=== PATIENT | male | born 1995 | race Caucasian/White ===

== ENCOUNTER 2019-05-27 20:19 | Emergency (ER) | payer SELFPAY ==
--- NOTE | 2019-05-27 20:24 | PDOC ---
Rapid Medical Evaluation Chief Complaint: Pain Time Seen by Provider: 05/27/19 20:22 Medical Evaluation: 05/27/19 20:24 I have performed a brief in-person evaluation of this patient. The patient presents with a chief complaint of:RLE injury yesterday Pertinent physical exam findings:stable w/ ELIANA in place to R ankle/foot and using crutches I have ordered the following:XR The patient will proceed to the ED for further evaluation. Discharge Disposition - Diagnosis Ankle injury Qualifiers: Encounter type: initial encounter Laterality: right Qualified Code(s): S99.911A - Unspecified injury of right ankle, initial encounter - Referrals - Patient Instructions - Post Discharge Activity
[2019-05-27 20:33] VITALS: BP 124/66; PULSE 90; TEMP 97.9; BMI 25.8
--- NOTE | 2019-05-27 21:49 | PDOC ---
History of Present Illness - General Chief Complaint: Pain Stated Complaint: RT LEG PAIN Time Seen by Provider: 05/27/19 20:22 History Source: Patient Exam Limitations: No Limitations - History of Present Illness Initial Comments: 05/27/19 21:57 HISTORY OF PRESENT ILLNESS: This a 24-year-old male denies medical history presents emergency department for evaluation of right ankle pain status post inversion injury while playing basketball. Patient reports she jumped up to get the ball when he came down landed on another player's foot causing his right foot to invert. The injury happened while [facility] [employer]. Patient had access to crutches and Alphonse wrap at that time. The incident happened approximately 24 hours ago and patient reports continued pain as his recent for evaluation. Patient currently rates his pain 5/10 and describes as a throbbing sensation. No recent travel or sick contacts. PAST MEDICAL HISTORY: Denies past medical history SURGICAL HISTORY: Denies ALLERGIES: No known drug allergies REVIEW OF SYSTEMS General/Constitutional: Denies fever or chills. Denies weakness, weight change. HEENT: Denies change in vision. Denies ear pain or discharge. Denies sore throat. Cardiovascular: Denies chest pain or shortness of breath. Respiratory: Denies cough, wheezing, or hemoptysis. Gastrointestinal: Denies nausea, vomiting, diarrhea or constipation. Denies rectal bleeding. Genitourinary: Denies dysuria, frequency, or change in urination. Musculoskeletal: see HPI Skin and breasts: Denies rash or easy bruising. Neurologic: Denies headache, vertigo, loss of consciousness, or loss of sensation. Psychiatric: Denies depression or anxiety. Endocrine: Denies increased thirst. Denies abnormal weight change. Hematologic/Lymphatic: Denies anemia, easy bleeding, or history of blood clots. Allergic/Immunologic: Denies hives or skin allergy. Denies latex allergy. PHYSICAL EXAM General Appearance: Well-appearing, appropriately dressed. No apparent distress , no intoxication. Respiratory/Chest: Lungs CTAB. No shortness of breath, chest tenderness, respiratory distress, accessory muscle use. No crackles, rales, rhonchi, stridor , wheezing, dullness Cardiovascular: RRR. S1, S2. No JVD, murmur, bradycardia, tachycardia. Vascular Pulses: Dorsalis-Pedis (R): 2+, Dorsalis-Pedis (L): 2+ Musculoskeletal/Extremities: Normal inspection. FROM of all extremities, normal capillary refill. Pelvis Stable. No CVA tenderness. No tenderness to extremities, pedal edema, swelling, erythema or deformity. NVI. Integumentary: Appropriate color, dry, warm. No cyanosis, erythema, jaundice or rash Past History - Past Medical History COPD: No - Suicide/Smoking/Psychosocial Hx Smoking History: Never smoked Have you smoked in the past 12 months: No Information on smoking cessation initiated: No Hx Alcohol Use: No Drug/Substance Use Hx: No *Physical Exam - Vital Signs Last Vital Signs Temp Pulse Resp BP Pulse Ox 97.9 F 90 17 124/66 100 05/27/19 20:23 05/27/19 20:23 05/27/19 20:23 05/27/19 20:23 05/27/19 20:23 Medical Decision Making - Medical Decision Making 05/27/19 21:38 A/P: 24-year-old male with right ankle pain status post inversion of his right foot while playing basketball X-rays performed by [facility] as read by me: No acute fractures or dislocations are present. Mortise is intact. Alphonse wrap [employer] Discharge home with orthopedic follow-up I discussed the physical exam findings, ancillary test results and final diagnoses with the patient. I answered all of the patient's questions. The patient was satisfied with the care received and felt comfortable with the discharge plan and treatment plan. The patient will call their primary care physician within 24 hours to arrange follow-up and will return to the Emergency Department with any new, persistent or worsening symptoms. Portions of this note have been documented using voice recognition software. As a result, errors may occur in the crnp process. Effort has been made to correct all grammatical and crnp error, but some may have been missed. 05/27/19 21:38 *DC/Admit/Observation/Transfer Diagnosis at time of Disposition: Ankle injury Qualifiers: Encounter type: initial encounter Laterality: right Qualified Code(s): S99.911A - Unspecified injury of right ankle, initial encounter - Discharge Dispostion Disposition: HOME Condition at time of disposition: Stable Decision to Admit order: No - Referrals Referrals: Sridhar Collado MD [Staff Physician] - - Patient Instructions Additional Instructions: Take Tylenol or Motrin as needed for pain. Follow manufacturers instructions for appropriate dosage. Try not to walk or bear weight on your ankle as much as possible for the next 3 days. Apply ice for 20 minutes and removed for at least 20 minutes before reapplying the ice. Keep Alphonse wrap on your ankle as much as possible to help decrease some of the swelling control pain. Whenever possible keep your foot elevated to decrease swelling to your ankle. You've been given the number for an orthopedist. If symptoms do not resolve within the next 7 days call the orthopedist for further evaluation. Return to emergency department for discoloration of the foot, numbness or tingling to the foot, worsening pain, or any other concerns. Thank you very much for choosing us to provide your emergent healthcare needs. - Post Discharge Activity Forms/Work/School Notes: Back to Work
== END 2019-05-27 21:48 | disposition home or self-care (01) ==
LOC: JERFT 20:19
PROC: 2W3QX1Z Immobilization of Right Lower Leg using Splint (ICD-10-PCS; principal; 2019-05-27)
DX: S99.811A Other specified injuries of right ankle, initial encounter (principal); X50.1XXA Overexertion from prolonged static or awkward postures, initial encounter; Y93.67 Activity, basketball; Y92.39 Other specified sports and athletic area as the place of occurrence of the external cause; Y99.8 Other external cause status
CPT/HCPCS: 73610-TC-RT-FY; 73630-TC-RT-FY; 99281-25